=== PATIENT | female | born 1960 | race Caucasian/White ===

== ENCOUNTER 2019-05-12 05:16 | Observation (INO) | payer OTHER ==
[2019-05-12] VITALS (12 sets, daily range): BP systolic 91–125; BP diastolic 44–67; PULSE 65–80; TEMP 97.3–97.8
[~2019-05-12] VITALS: Ht 162.6 cm; Wt 80.0 kg
[2019-05-12] MEDS ORDERED: COLACE 100100 MG/CAP PO (05:58)
[2019-05-12] MEDS ORDERED: ELIQUIS 5MG PO (05:59)
[2019-05-12] MEDS ORDERED: ZOCOR 40MG40 MG PO (05:59)
[2019-05-12] MEDS ORDERED: PAXIL 20MG20 MG PO (06:00)
[2019-05-12] MEDS ORDERED: VITAMIN D 1001000 IU PO (06:00)
[2019-05-12] MEDS ORDERED: VESICARE10 MG PO (06:00)
[2019-05-12] MEDS ORDERED: PRINIVIL10 MG PO (06:01)
[2019-05-12] MEDS ORDERED: TRICOR 48MG48 MG PO (06:01)
[2019-05-12] MEDS ORDERED: CLARITIN 1010 MG/TAB PO (06:01)
[2019-05-12] MEDS ORDERED: LIPITOR 40MG TA40 MG PO (06:02)
[2019-05-12] MEDS ORDERED: OSCAL 500 TAB500 MG PO (06:03)
[2019-05-12] MEDS ORDERED: MULTI VITAMINS1 TAB PO (06:04)
--- NOTE | 2019-05-12 11:35 | NUR ---
returned to room from PACU, awake and alert, IV infusing and placed on pump at 100ml/hr, O2 on at 2L/NC, vazquez cath patent draining clear yellow urine, 5 port sites with yanes set and CD&I, denies needs
--- NOTE | 2019-05-12 11:45 | NUR ---
resting in bed, full assessment completed, see interventions for further info, denies pain, family at bedside
--- NOTE | 2019-05-12 12:15 | NUR ---
medicated with scheduled tylenol, takes sips of water and tolerates well
--- NOTE | 2019-05-12 13:15 | NUR ---
continues to be awake and visit with family, denies needs
--- NOTE | 2019-05-12 14:15 | NUR ---
continues to take water and tolerats well, visits with family and denies needs
--- NOTE | 2019-05-12 15:15 | NUR ---
offered clear liquids besides water and declines, told her when she was ready to let the staff know, verbalizes understanding
--- NOTE | 2019-05-12 17:08 | NUR ---
sitting up in bed talking on phone having clear liquids, denies needs
--- NOTE | 2019-05-12 18:50 | NUR ---
resting in bed, bedside shift report given to AMBER Gudino
--- NOTE | 2019-05-12 19:45 | NUR ---
Pt. sitting up in bed with at bedside. Pt. is A&OX3, assessment complete. IV to rt. forearm patent, IV fluids infusing per orders. Abd. lap sites X5 [employer], edges well approximated. Pt. denies pain or other needs at this time.
[2019-05-13 05:36] VITALS: BP 107/58; PULSE 62; TEMP 97.6
--- NOTE | 2019-05-13 05:47 | NUR ---
Pt. slept well through the night. Pt. remains A&OX3. Pt. denies pain or other needs at this time.
--- NOTE | 2019-05-13 06:03 | NUR ---
Garcia catheter discontinued at this time. Pt. tolerated well.
--- NOTE | 2019-05-13 06:42 | NUR ---
bedside shift report received from AMBER Gudino
--- NOTE | 2019-05-13 07:44 | NUR ---
had breakfast and tolerated well, Dr Duarte was in to see patient, full assessment completed, see interventions for further info, denies needs at this time
[2019-05-13 07:58] VITALS: BP 104/57; PULSE 68; TEMP 97.8
--- NOTE | 2019-05-13 11:15 | NUR ---
assisted up to bathroom and was unable to void, encouraged to start drinking more water and verbalizes under standing, assisted with taking a shower and will continue to monitor
[2019-05-13 11:19] VITALS: BP 120/56; PULSE 62; TEMP 97.7
--- NOTE | 2019-05-13 11:54 | NUR ---
had shower and tolerated well, is drinking water and will attempt to void again soon
--- NOTE | 2019-05-13 11:58 | NUR ---
First visit from the biometrics head. No needs right now.
--- NOTE | 2019-05-13 12:31 | NUR ---
was up to bathroom independently and voided approx 100ml clear yellow urine
--- NOTE | 2019-05-13 14:16 | NUR ---
up and about in room independently, has voided again 200ml clear yellow urine, is asking about going home, will notify Dr Duarte
--- NOTE | 2019-05-13 14:49 | NUR ---
YARELI met with the patient to discuss a discharge plan. The pt lives in [place] with her family. The pt does not use DME and reports independence with ADLs. The pt's PCP is Dr. Hazel and pt receives medications from [facility]. The pt does not have advanced directives in the EMR but was interested in a DPOA-HC form. YARELI provided the form. The pt plans to return home upon discharge and Kunal will provide transportation. There are no additional needs at this time.
--- NOTE | 2019-05-13 15:00 | NUR ---
discharge instructions given to patient and her , verbalizes understanding
--- NOTE | 2019-05-13 15:10 | NUR ---
discharged per WC
== END 2019-05-13 15:10 | disposition home or self-care (01) ==
LOC: SDCO 05:16 → SURG 07:00 → SDCO 08:30 → SURG 11:35 → SDCO 13:00 → SURG 05-13 15:10
PROVIDERS: ADMIT Urology
DX: N99.3 Prolapse of vaginal vault after hysterectomy (principal); N30.20 Other chronic cystitis without hematuria; F32.9 Major depressive disorder, single episode, unspecified; F41.9 Anxiety disorder, unspecified; E11.9 Type 2 diabetes mellitus without complications; I10 Essential (primary) hypertension; K21.9 Gastro-esophageal reflux disease without esophagitis; E78.00 Pure hypercholesterolemia, unspecified; E78.5 Hyperlipidemia, unspecified; G35 Multiple sclerosis; M85.80 Other specified disorders of bone density and structure, unspecified site; Z90.49 Acquired absence of other specified parts of digestive tract; Z90.710 Acquired absence of both cervix and uterus; Z79.01 Long term (current) use of anticoagulants; Z88.1 Allergy status to other antibiotic agents; Z83.3 Family history of diabetes mellitus; Z82.49 Family history of ischemic heart disease and other diseases of the circulatory system; Z84.1 Family history of disorders of kidney and ureter
CPT/HCPCS: OP; A4314; C1781; G0378; G0379; J0690; J1100; J1885; J2270; J2405; J2704; J2710; J7120